=== PATIENT | male | born 2000 | race Caucasian/White ===

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

== ENCOUNTER 2018-03-27 19:01 | Emergency (ER) | payer OTHER, BC ==
[2018-03-27] MEDS: TETRACAINE 0.5% OPHTH SOLN 4ML OS (21:15)
[2018-03-27] MEDS: FLUORESCEIN OPHTH 1 MG STRIP OS (21:15)
[2018-03-27] MEDS: ERYTHROMYCIN OPHTH OINT OS (21:27)
[2018-03-27] MEDS: KETOROLAC 0.5% OPHTH SOLN OS (21:27)
== END 2018-03-27 21:34 | disposition home or self-care (01) ==
LOC: M ED 19:01
DX: S05.02XA Injury of conjunctiva and corneal abrasion without foreign body, left eye, initial encounter (principal); W20.8XXA Other cause of strike by thrown, projected or falling object, initial encounter; Y92.89 Other specified places as the place of occurrence of the external cause; Y93.89 Activity, other specified
CPT/HCPCS: 99283